=== PATIENT | male | born 1995 | race Caucasian/White ===

== ENCOUNTER 2020-02-22 18:30 | Emergency (ER) | payer BC, OTHER ==
[~2020-02-22] VITALS: Ht 188 cm; Wt 94.3 kg
[~2020-02-22 18:30] MED LIST: ALBU2.5V8 IH; AZIT250T PO; ESOM40CA PO; FAMO20TA5 PO; INSU100I13 SQ; METO5TAB PO; SERT50TA PO
[2020-02-22 18:43] VITALS: BP 147/95
--- NOTE | 2020-02-22 18:53 | PHYS DOC ---
Past History Past Medical History: Depression, Diabetes, GERD Past Surgical History: Appendectomy Smoking: Non-smoker Alcohol Use: None Drug Use: None Adult General Chief Complaint Chief Complaint: COUGH...I ve been cough for two weeks.... and running a fever the last three days.. Just, hurt all over like I got the flu... Advised Dr. Small's office in a year for further evaluation. HPI HPI Patient is a 24 year old male who presents with above hx and complaints of fever, non-productive cough, days, arthralgia, myalgia, and fatigue. He hasn't previously received nasal swabs at Dr. Small's office. Sent to the emergency department for further evaluation. No recent travel outside the cancer area. Multiple members in the household have fever and cough. Patient's brother and his girlfriend 2 other roommates all have same symptoms. Patient did receive flu vaccination this season. Normally healthy. Follows with Dr. Small. Review of Systems Review of Systems Constitutional: Denies fever or chills [] Eyes: Denies change in visual acuity, redness, or eye pain [] HENT: Denies nasal congestion or sore throat [] Respiratory: She a nonproductive cough and wheezing Cardiovascular: No additional information not addressed in HPI [] GI: Denies abdominal pain, nausea, vomiting, bloody stools or diarrhea [] : Denies dysuria or hematuria [] Musculoskeletal: Denies back pain or joint pain [] Integument: Denies rash or skin lesions [] Neurologic: Denies headache, focal weakness or sensory changes [] Endocrine: Denies polyuria or polydipsia [] All other systems were reviewed and found to be within normal limits, except as documented in this note. Family History Family History Noncontributory Current Medications Current Medications Current Medications Medications (Trade) Dose Ordered Sig/Gurpreet Start Time Stop Time Status Last Admin Dose Admin Prednisone (Prednisone) 50 mg 1X ONCE 02/22/20 19:00 02/22/20 19:01 UNV Allergies Allergies Allergies Coded Allergies Type Severity Reaction Last Updated Verified Penicillins Allergy Intermediate 06/09/15 No Uncoded Allergies Type Severity Reaction Last Updated Verified bee venom Allergy Unknown 11/07/16 Physical Exam Physical Exam Constitutional: no acute distress, non-toxic appearance. [] HENT: Normocephalic, atraumatic, bilateral external ears normal, oropharynx moist, no oral exudates, nose: Turbinates and clear rhinorrhea Eyes: PERRLA, EOMI, conjunctiva normal, no discharge. [] Neck: Normal range of motion, no tenderness, supple, no stridor. [] Cardiovascular: Heart rate regular rhythm, no murmur [] Lungs & Thorax: Bilateral breath sounds equal apexes few scattered wheezes on auscultation [] Abdomen: Bowel sounds normal, soft, no tenderness, no masses, no pulsatile masses. [] Old surgery scar. Skin: Warm, dry, no erythema, no rash. [] Back: No tenderness, no CVA tenderness. [] Extremities: No tenderness, no cyanosis, no clubbing, ROM intact, no edema. [] Neurologic: Alert and oriented X 3, normal motor function, normal sensory function, no focal deficits noted. [] Psychologic: Affect normal, judgement normal, mood normal. [] Current Patient Data Vital Signs Vital Signs Date Time Temp Pulse Resp B/P (MAP) Pulse Ox O2 Delivery O2 Flow Rate FiO2 02/22/20 18:43 98.1 80 16 147/95 (112 98 Room Air EKG EKG [] Radiology/Procedures Radiology/Procedures [][place] [address] IMAGING REPORT Signed PATIENT: TELMA CARROLL ACCOUNT: [id number] : 1995 LOCATION: ER AGE: 24 SEX: M EXAM STATUS: REG ER ORD. PHYSICIAN: TAMI MARTINEZ MD REASON: cough x 2 , weeks, fever x 3 days PROCEDURE: CHEST PA & LATERAL Study: CR CHEST PA LATERAL Indication: Cough and fever. Comparison: 11/07/2016 Findings: No pneumothorax, lobar consolidation or pleural effusion. Within normal limits cardiomediastinal silhouette and jyoti. Impression: No acute radiographic abnormality of the chest. Electronically signed by: MIMI JAUREGUI MD (02/22/2020 7:29 PM) [id number] DICTATED AND SIGNED BY: MIMI JAUREGUI MD DATE: 02/22/20 1929 CC: J CARLOS SMALL MD; TAMI MARTINEZ MD ~ Course & Med Decision Making Course & Med Decision Making Pertinent Labs and Imaging studies reviewed. (See chart for details) Take Tylenol and ibuprofen as needed for fever and discomfort. Push fluids. Self isolate. Practice social distance. Follow-up testing done at Dr. Small's office. Use MDI 2 puffs 4 times a day. Follow CDC for up to date information of CO-19. 1. Bronchitis 2. Viral syndrome [] Dragon Disclaimer Dragon Disclaimer This electronic medical record was generated, in whole or in part, using a voice recognition dictation system. Departure Departure: Disposition: HOME/RESIDENCE PRIOR TO ADM Condition: STABLE Referrals: J CARLOS SMALL MD (PCP) Scripts Albuterol Sulfate (VENTOLIN HFA INHALER) 18 Gm Hfa.aer.ad 2 PUFF IH PRN Q4HRS for cough for 30 Days, INHALER 0 Refills Prov: TAMI MARTINEZ MD 02/22/20 Dragon Disclaimer This chart was dictated in whole or in part using Voice Recognition software in a busy, high-work load, and often noisy Emergency Department environment. It may contain unintended and wholly unrecognized errors or omissions. Dragon Disclaimer This chart was dictated in whole or in part using Voice Recognition software in a busy, high-work load, and often noisy Emergency Department environment. It may contain unintended and wholly unrecognized errors or omissions. TAMI MARTINEZ MD Feb 22, 2020 18:53
[2020-02-22] MEDS ORDERED: predniSONE 10 MG TABLET PO ONE (19:00)
[2020-02-22] MEDS ORDERED: IPRATRPIUM/ALBUTEROL 0.5/2.5MG 3 ML NEBU. NEB ONE (19:00)
[2020-02-22 19:29] LABS: INFLUENZA A PATIENT NEGATIVE (NEGATIVE); INFLUENZA B PATIENT NEGATIVE (NEGATIVE)
--- NOTE | 2020-02-22 19:31 | RAD ---
Study: CR CHEST PA LATERAL Indication: Cough and fever. Comparison: 11/07/2016 Findings: No pneumothorax, lobar consolidation or pleural effusion. Within normal limits cardiomediastinal silhouette and jyoti. Impression: No acute radiographic abnormality of the chest. Electronically signed by: MIMI JAUREGUI MD (02/22/2020 7:29 PM) [id number]
[2020-02-22] MEDS ORDERED: ALBU2.5V8 IH (19:45)
== END 2020-02-22 19:55 | disposition home or self-care (01) ==
LOC: ER 18:30
DX: J40 Bronchitis, not specified as acute or chronic (principal); B34.9 Viral infection, unspecified; E11.9 Type 2 diabetes mellitus without complications; K21.9 Gastro-esophageal reflux disease without esophagitis; Z88.0 Allergy status to penicillin
CPT/HCPCS: 71046; 87070; 87804; 87880; 94640; 99284; J7512

== ENCOUNTER 2020-03-12 16:26 | Emergency (ER) | payer OTHER ==
[~2020-03-12] VITALS: Ht 188 cm; Wt 96.9 kg
[2020-03-12 16:26] VITALS: BP 144/79
[2020-03-12] MEDS ORDERED: IV NORMAL SALINE 1,000ML 1,000 ML IV ONE (16:45)
--- NOTE | 2020-03-12 16:51 | PHYS DOC ---
Past History Past Medical History: Depression, Diabetes, GERD Past Surgical History: Appendectomy Smoking: Non-smoker Alcohol Use: None Drug Use: None General Adult EDM: Chief Complaint: NAUSEA/VOMITING/DIARRHEA HPI: HPI: 24-year-old male significant history of hypertension, hyperlipidemia, insulin- dependent diabetes mellitus, asthma, GERD, who presents from Dr. Small's office for evaluation of a few days of trace hemoptysis and hematemesis. He reports a few days of hematemesis consisting of bright red blood, though has been gradually decreasing, with occasional speckles of blood now. He also reports some trace amount assist in the setting of ongoing cough. Having intermittent nausea and vomiting. Has some upper abdominal discomfort a few days ago, though he has been asymptomatic in this regard the last couple days. No aspirin or anticoagulant use. Prior appendectomy. Recently tested negative for COVID19 as outpatient. Review of Systems: Review of Systems: General: Reports subjective fevers and chills, fatigue. Eyes: No blurred vision, diplopia. ENT: No nasal congestion, sore throat. CV: No chest pain, edema. Resp: No shortness of breath. Reports Trisenox is, cough. GI: No abdominal pain. Reports hematemesis, nausea, vomiting. : No dysuria, hematuria. Neuro: No headache, dizziness, weakness. MSK: No myalgia, arthralgia, back pain. Skin: No acute rash, lesion. Heart Score: Risk Factors: Risk Factors: DM, Current or recent (<one month) smoker, HTN, HLP, family history of CAD, obesity. Risk Scores: Score 0 - 3: 2.5% MACE over next 6 weeks - Discharge Home Score 4 - 6: 20.3% MACE over next 6 weeks - Admit for Clinical Observation Score 7 - 10: 72.7% MACE over next 6 weeks - Early Invasive Strategies Allergies: Allergies: Allergies Coded Allergies Type Severity Reaction Last Updated Verified Penicillins Allergy Intermediate 06/09/15 No bee venom protein (honey bee) Allergy Unknown 02/22/20 Yes Physical Exam: PE: Gen: NAD. Well nourished. Head: NC/AT Eyes: No scleral icterus. No conjunctival injection. ENT: MMM. Posterior OP clear. Uvula midline. Neck: Supple. NT. CV: RRR. Peripheral pulses intact. Resp: CTAB. Abd: Soft. NT. ND. MSK: No peripheral cyanosis. No edema. Neuro: Awake and alert. Skin: Warm. Dry. Psych: Appropriate mood & affect. EKG: EKG: [] Radiology/Procedures: Radiology/Procedures: Exam: Chest one view FINDINGS: The cardiomediastinal silhouette and pulmonary vessels are within normal limits. The lung and pleural spaces are clear. IMPRESSION: No acute cardiopulmonary process. Electronically signed by: Alissa Baer MD (03/12/2020 5:16 PM) [id number] Course & Med Decision Making: Course & Med Decision Making Pertinent Labs and Imaging studies reviewed. (See chart for details) In summary, 24-year-old male who presents for evaluation of URI symptoms, trace hematemesis and hemoptysis, though gradually decreasing with time. Also has an transient upper abdominal pain a few days ago, but has had no abdominal pain for the last 2 days or so. Unremarkable cardiorespiratory and abdominal examination. Hemodynamically stable. Pulse oximetry is 98% on room air. The patient's lab work was otherwise unrevealing. He has a normal hemoglobin of 1 7.3. No leukocytosis or lymphopenia. Remainder of lab work is otherwise unrevealing. Borderline hypoglycemia at 63, with the patient not having eaten today, tolerating oral intake. No recurrent episodes of nausea, vomiting, hematemesis or hemoptysis. His hemoptysis is likely due to his ongoing URI symptoms, possibly bronchitis. His hematemesis is likely a consequence of gastritis/Gricelda-Chu spectrum disease. Do not suspect acute PE at this time.I spoke with Dr. Rogers regarding findings and disposition. Agreeable with plan for prescription is for Zithromax, Carafate, continuation of pantoprazole 40 mg twice daily. Outpatient follow-up. Return precautions given. Dragon Disclaimer: Dragon Disclaimer: This electronic medical record was generated, in whole or in part, using a voice recognition dictation system. Departure Departure: Impression: Primary Impression: Viral syndrome Additional Impressions: Hematemesis Hemoptysis Disposition: HOME, SELF-CARE Condition: STABLE Referrals: J CARLOS SMALL MD (PCP) Patient Instructions: Hematemesis, Hemoptysis-Brief, Viral Syndrome Scripts Azithromycin (ZITHROMAX) 250 Mg Tablet 1 PKG PO UD for bronchitis, #6 TAB Prov: LE,JAZZ H DO 4/15/20 Sucralfate (CARAFATE) 1 Gm/10 Ml Oral.susp 10 ML PO BID for gastritis for 6 Days, #240 ML 0 Refills before food Prov: JAZZ DONAHUE DO 03/12/20 JAZZ DONAHUE DO Mar 12, 2020 16:51
[2020-03-12 17:14] LABS: BASO # 0.1 x10^3/uL (0.0-0.2); BASO % 1 % (0-3); EOS # 0.4 x10^3/uL (0.0-0.7); EOS % 6 % (0-3); HEMATOCRIT 49.3 % (39.0-53.0); HEMOGLOBIN 17.3 g/dL (13.0-17.5); LYMPH # 3.1 x10^3/uL (1.0-4.8); LYMPH % 45 % (24-48); MEAN CORPUSCULAR HEMOGLOBIN 30 pg (25-35); MEAN CORPUSCULAR HGB CONC 35 g/dL (31-37); MEAN CORPUSCULAR VOLUME 86 fL (79-100); MONO # 0.5 x10^3/uL (0.0-1.1); MONO % 8 % (0-9); NEUT # 2.8 x10^3uL (1.8-7.7); NEUT % 40 % (31-73); PLATELET COUNT 210 x10^3/uL (140-400); RED BLOOD COUNT 5.72 x10^6/uL (4.30-5.70); RED CELL DISTRIBUTION WIDTH 13.1 % (11.5-14.5); WHITE BLOOD COUNT 6.9 x10^3/uL (4.0-11.0)
[2020-03-12] MEDS ORDERED: PANTOPRAZOLE IV 40 MG VIAL. IVP ONE (17:15)
[2020-03-12] MEDS ORDERED: METOCLOPRAMIDE HCL 10 MG/2 ML VIAL. IVP ONE (17:15)
--- NOTE | 2020-03-12 17:19 | RAD ---
Exam: Chest one view INDICATION: Cough TECHNIQUE: Frontal view of the chest Comparisons: 02/22/2020 FINDINGS: The cardiomediastinal silhouette and pulmonary vessels are within normal limits. The lung and pleural spaces are clear. IMPRESSION: No acute cardiopulmonary process. Electronically signed by: Alissa Baer MD (03/12/2020 5:16 PM) [id number]
[2020-03-12 17:21] LABS: CALCIUM 9.4 mg/dL (8.5-10.1); GFR 92.6; POTASSIUM 3.1 mmol/L (3.5-5.1)
[2020-03-12 17:26] LABS: ALBUMIN 4.4 g/dL (3.4-5.0); ALBUMIN/GLOBULIN RATIO 1.2 (1.0-1.7); MAGNESIUM 1.8 mg/dL (1.8-2.4); TOTAL BILIRUBIN 0.3 mg/dL (0.2-1.0); TOTAL PROTEIN 8.1 g/dL (6.4-8.2)
[2020-03-12] MEDS ORDERED: SUCR1ORA5 PO (17:58)
[2020-03-12] MEDS ORDERED: AZIT250T PO (17:58)
== END 2020-03-12 18:00 | disposition home or self-care (01) ==
LOC: ER 16:26
DX: B34.9 Viral infection, unspecified (principal); K92.0 Hematemesis; R04.2 Hemoptysis; R11.2 Nausea with vomiting, unspecified; E11.9 Type 2 diabetes mellitus without complications; K21.9 Gastro-esophageal reflux disease without esophagitis; I10 Essential (primary) hypertension; E78.5 Hyperlipidemia, unspecified; J45.909 Unspecified asthma, uncomplicated; Z90.89 Acquired absence of other organs; Z88.0 Allergy status to penicillin; Z91.030 Bee allergy status
CPT/HCPCS: 36415; 71045; 80053; 82010; 83690; 83735; 84484; 85025; 85610; 85730; 96361; 96374; 96375; 99284; C9113; J2765; J7030

== ENCOUNTER 2020-05-15 08:48 | Emergency (ER) | payer OTHER ==
[~2020-05-15] VITALS: Ht 188 cm; Wt 96.6 kg
[~2020-05-15 08:48] MED LIST changes: +SUCR1ORA5 PO
[2020-05-15 08:57] VITALS: BP 150/81
[2020-05-15] MEDS ORDERED: ONDA4TAB12 PO (09:14)
[2020-05-15] MEDS ORDERED: FAMO-63 PO (09:14)
--- NOTE | 2020-05-15 09:14 | PHYS DOC ---
Past History Past Medical History: Asthma, Depression, Diabetes, GERD, High Cholesterol, Hypertension, Hypothyroid Past Surgical History: Appendectomy Smoking: Non-smoker Alcohol Use: Occasionally Drug Use: None General Adult EDM: Chief Complaint: SORE THROAT HPI: HPI: 24-year-old male presents with report of nausea and vomiting x1 day. Patient now complaining of sore throat. Reports he is concerned he might of "tore or pulled something in his throat "after vomiting multiple times. Denies any fever or chills. Denies known sick contacts. Patient reports past medical history of diabetes type 1. Review of Systems: Review of Systems: Constitutional: Denies fever or chills; reports malaise Eyes: Denies redness or eye pain HENT: Denies nasal congestion; reports sore throat Respiratory: Denies cough or shortness of breath Cardiovascular: Denies chest pain or palpitations GI: Denies abdominal pain; reports nausea and vomiting : Denies dysuria or hematuria Musculoskeletal: Denies back pain or joint pain Integument: Denies rash or skin lesions Neurologic: Denies headache, focal weakness or sensory changes Complete systems were reviewed and found to be within normal limits, except as documented in this note. Allergies: Allergies: Allergies Coded Allergies Type Severity Reaction Last Updated Verified Penicillins Allergy Intermediate 06/09/15 No bee venom protein (honey bee) Allergy Unknown 02/22/20 Yes Physical Exam: PE: Constitutional: Well developed, well nourished, no acute distress, non-toxic appearance HENT: Normocephalic, atraumatic, oropharynx moist, pharynx erythematous without exudate Eyes: Conjunctiva normal, no discharge Neck: Normal range of motion, no tenderness, supple Lungs & Thorax: No respiratory distress, equal chest rise and fall Abdomen: Soft, no tenderness, no guarding/rebound tenderness/distention Skin: Warm, dry, no erythema, no rash Extremities: No tenderness, ROM intact, no edema Neurologic: Alert and oriented X 3, no focal deficits noted Psychologic: Affect anxious, judgment normal Current Patient Data: Vital Signs: Vital Signs Date Time Temp Pulse Resp B/P (MAP) Pulse Ox O2 Delivery O2 Flow Rate FiO2 05/15/20 08:57 98.2 97 18 150/81 (104) 96 EKG: EKG: [] Radiology/Procedures: Radiology/Procedures: [] Course & Med Decision Making: Course & Med Decision Making Pertinent Lab studies reviewed. (See chart for details) Patient presents with sore throat after multiple episodes of nausea and vomiting. Patient does report some continued nausea. Patient is a type I diabetic. Abdomen non-peritoneal. Labs obtained and posted to chart. Minimal hypomagnesemia noted, H/H stable, glucose low 200s. Patient currently on insulin pump. IV fluid hydration given. Symptomatic treatment provided with interval improvement of symptoms. Patient stable for discharge with outpatient follow-up with PCP/GI. GI referral provided. Discussed findings and plan with patient, who acknowledges understanding and agreement. Dragon Disclaimer: Dragon Disclaimer: This electronic medical record was generated, in whole or in part, using a voice recognition dictation system. Departure Departure: Impression: Primary Impression: Nausea and vomiting Qualified Codes: R11.2 - Nausea with vomiting, unspecified Additional Impression: Sore throat Disposition: HOME/RESIDENCE PRIOR TO ADM Condition: STABLE Referrals: J CARLOS SMALL MD (PCP) NATALYA BECKER MD Patient Instructions: Nausea and Vomiting, [id number], Sore Throat, Ea sy-to-Read Scripts Famotidine (PEPCID) 20 Mg Tablet 1 TAB PO BID for Gastritis for 5 Days, #10 TAB Prov: KASSANDRA HAMMOND DO 05/15/20 Ondansetron (ONDANSETRON ODT) 4 Mg Tab.rapdis 1 TAB PO PRN Q6-8HRS PRN for NAUSEA, #16 TAB Prov: KASSANDRA HAMMOND DO 05/15/20 Justification of Admission: Justification of Admission: Justification of Admission Dx: N/A KASSANDRA HAMMOND DO May 15, 2020 09:14
[2020-05-15] MEDS ORDERED: ONDANSETRON PF 4 MG/2 ML VIAL. IVP ONE (09:15)
[2020-05-15] MEDS ORDERED: FAMOTIDINE 20 MG/2 ML VIAL IVP ONE (09:15)
[2020-05-15] MEDS ORDERED: IV NORMAL SALINE 1,000ML 1,000 ML IV ONE (09:15)
[2020-05-15] MEDS ORDERED: KETOROLAC 15 MG/ML VIAL. IVP ONE (09:15)
[2020-05-15] MEDS ORDERED: LIDO:MAALOX 1:1 20 ML SINGLE DOSE. PO ONE (09:15)
[2020-05-15 09:25] LABS: BASO # 0.1 x10^3/uL (0.0-0.2); BASO % 1 % (0-3); EOS # 0.1 x10^3/uL (0.0-0.7); EOS % 0 % (0-3); HEMOGLOBIN 16.7 g/dL (13.0-17.5); LYMPH # 2.3 x10^3/uL (1.0-4.8); LYMPH % 19 % (24-48); MEAN CORPUSCULAR HEMOGLOBIN 30 pg (25-35); MEAN CORPUSCULAR HGB CONC 34 g/dL (31-37); MEAN CORPUSCULAR VOLUME 88 fL (79-100); MONO # 1.2 x10^3/uL (0.0-1.1); MONO % 10 % (0-9); NEUT # 8.5 x10^3uL (1.8-7.7); NEUT % 70 % (31-73); PLATELET COUNT 199 x10^3/uL (140-400); RED BLOOD COUNT 5.56 x10^6/uL (4.30-5.70); RED CELL DISTRIBUTION WIDTH 13.1 % (11.5-14.5); WHITE BLOOD COUNT 12.1 x10^3/uL (4.0-11.0)
[2020-05-15 09:33] LABS: CALCIUM 10.1 mg/dL (8.5-10.1); GFR 92.6; POTASSIUM 3.5 mmol/L (3.5-5.1)
[2020-05-15 09:38] LABS: ALBUMIN 4.2 g/dL (3.4-5.0); ALBUMIN/GLOBULIN RATIO 1.1 (1.0-1.7); MAGNESIUM 1.4 mg/dL (1.8-2.4); TOTAL BILIRUBIN 1.2 mg/dL (0.2-1.0); TOTAL PROTEIN 7.9 g/dL (6.4-8.2)
== END 2020-05-15 09:45 | disposition home or self-care (01) ==
LOC: ER 08:48
DX: R11.2 Nausea with vomiting, unspecified (principal); J02.9 Acute pharyngitis, unspecified; J45.909 Unspecified asthma, uncomplicated; E10.9 Type 1 diabetes mellitus without complications; K21.9 Gastro-esophageal reflux disease without esophagitis; E78.00 Pure hypercholesterolemia, unspecified; I10 Essential (primary) hypertension; E03.9 Hypothyroidism, unspecified; Z90.89 Acquired absence of other organs; Z88.0 Allergy status to penicillin; Z91.030 Bee allergy status
CPT/HCPCS: 36415; 80053; 82947; 83690; 83735; 85025; 96374; 96375; 99284; J1885; J2405; J3490; J7030

== ENCOUNTER 2020-06-21 23:19 | Emergency (ER) | payer OTHER ==
[~2020-06-21] VITALS: Ht 190.5 cm; Wt 94.1 kg
[~2020-06-21 23:19] MED LIST changes: +FAMO-63 PO; +ONDA4TAB12 PO
[2020-06-22 00:06] LABS: ALBUMIN 3.7 g/dL (3.4-5.0); C REACTIVE PROTEIN 1.6 mg/L (0-3.3); CALCIUM 8.9 mg/dL (8.5-10.1); CREATININE 1.6 mg/dL (0.7-1.3); GFR 53.8; POTASSIUM 4.2 mmol/L (3.5-5.1); TOTAL BILIRUBIN 0.6 mg/dL (0.2-1.0); TOTAL PROTEIN 7.4 g/dL (6.4-8.2)
--- NOTE | 2020-06-22 00:07 | RAD ---
Chest AP portable at 2330: Reason for examination: Cough. Comparison is made to previous study dated 03/12/2020. The heart size is normal. Mediastinum is unremarkable. Lung balbuena are clear. No acute bony abnormalities are seen. Impression: No acute cardiopulmonary disease. Electronically signed by: Gely Peterson MD (06/22/2020 12:04 AM) [id number]
[2020-06-22 00:08] LABS: BASO % 0 % (0-3); EOS # 0.1 x10^3/uL (0.0-0.7); EOS % 2 % (0-3); HEMOGLOBIN 16.2 g/dL (13.0-17.5); LYMPH # 2.1 x10^3/uL (1.0-4.8); LYMPH % 29 % (24-48); MEAN CORPUSCULAR HEMOGLOBIN 30 pg (25-35); MEAN CORPUSCULAR HGB CONC 34 g/dL (31-37); MEAN CORPUSCULAR VOLUME 88 fL (79-100); MONO # 0.6 x10^3/uL (0.0-1.1); MONO % 8 % (0-9); NEUT # 4.2 x10^3uL (1.8-7.7); NEUT % 60 % (31-73); PLATELET COUNT 177 x10^3/uL (140-400); RED BLOOD COUNT 5.43 x10^6/uL (4.30-5.70); RED CELL DISTRIBUTION WIDTH 12.5 % (11.5-14.5)
[2020-06-22] MEDS ORDERED: IV NORMAL SALINE 1,000ML 1,000 ML IV ONE ×2 (00:30→01:15)
[2020-06-22] MEDS ORDERED: FAMOTIDINE 20 MG/2 ML VIAL IVP ONE (01:15)
[2020-06-22] MEDS ORDERED: LIDO:MAALOX 1:1 20 ML SINGLE DOSE. PO ONE (01:15)
[2020-06-22 01:19] LABS: CLARITY,URINE CLEAR; COLOR,URINE STRAW
[2020-06-22 01:20] LABS: AMORPHOUS SEDIMENT,UR PRESENT /HPF; BACTERIA,URINE FEW /HPF (0-FEW); BILIRUBIN,URINE NEG (NEG); GLUCOSE,URINE >=1000 mg/dL (NEG); NITRITE,URINE NEG (NEG); RBC,URINE 0 /HPF (0-2); SQUAMOUS EPITHELIAL CELL,UR OCC /LPF; UROBILINOGEN,URINE 0.2 mg/dL (0.2 mg/dL); WBC,URINE 0 /HPF (0-4)
[2020-06-22 01:35] VITALS: BP 131/81
[2020-06-22] MEDS ORDERED: SUCR1TAB35 PO (01:53)
[2020-06-22] MEDS ORDERED: FAMO-63 PO (01:53)
--- NOTE | 2020-06-22 01:54 | PHYS DOC ---
Past History Past Medical History: Anxiety, Bipolar, Depression, Diabetes, GERD, High Cholesterol, Hypertension Past Surgical History: Appendectomy Smoking: Non-smoker Alcohol Use: Occasionally Drug Use: None Adult General Chief Complaint Chief Complaint: DIZZY/LIGHT HEADED HPI HPI Patient is a [age] year old [sex] who presents with [] Review of Systems Review of Systems Constitutional: Denies fever or chills [] Eyes: Denies change in visual acuity, redness, or eye pain [] HENT: Denies nasal congestion or sore throat [] Respiratory: Denies cough or shortness of breath [] Cardiovascular: No additional information not addressed in HPI [] GI: Denies abdominal pain, nausea, vomiting, bloody stools or diarrhea [] : Denies dysuria or hematuria [] Musculoskeletal: Denies back pain or joint pain [] Integument: Denies rash or skin lesions [] Neurologic: Denies headache, focal weakness or sensory changes [] Endocrine: Denies polyuria or polydipsia [] All other systems were reviewed and found to be within normal limits, except as documented in this note. Current Medications Current Medications Current Medications Medications (Trade) Dose Ordered Sig/Gurpreet Start Time Stop Time Status Last Admin Dose Admin Famotidine (Pepcid Vial) 20 mg 1X ONCE 06/22/20 01:15 06/22/20 01:16 DC 06/22/20 01:18 20 MG Multi-Ingredient Mouthwash/Gargle (Gi Cocktail) 20 ml 1X ONCE 06/22/20 01:15 06/22/20 01:16 DC 06/22/20 01:18 20 ML Sodium Chloride 1,000 ml @ 1,000 mls/hr 1X ONCE 06/22/20 01:15 06/22/20 02:14 UNV 06/22/20 01:19 1,000 MLS/HR Allergies Allergies Allergies Coded Allergies Type Severity Reaction Last Updated Verified Penicillins Allergy Intermediate 06/21/20 No bee venom protein (honey bee) Allergy Unknown 06/21/20 Yes Physical Exam Physical Exam Constitutional: Well developed, well nourished, no acute distress, non-toxic appearance. [] HENT: Normocephalic, atraumatic, bilateral external ears normal, oropharynx moist, no oral exudates, nose normal. [] Eyes: PERRLA, EOMI, conjunctiva normal, no discharge. [] Neck: Normal range of motion, no tenderness, supple, no stridor. [] Cardiovascular:Heart rate regular rhythm, no murmur [] Lungs & Thorax: Bilateral breath sounds clear to auscultation [] Abdomen: Bowel sounds normal, soft, no tenderness, no masses, no pulsatile masses. [] Skin: Warm, dry, no erythema, no rash. [] Back: No tenderness, no CVA tenderness. [] Extremities: No tenderness, no cyanosis, no clubbing, ROM intact, no edema. [] Neurologic: Alert and oriented X 3, normal motor function, normal sensory function, no focal deficits noted. [] Psychologic: Affect normal, judgement normal, mood normal. [] Current Patient Data Vital Signs Vital Signs Date Time Temp Pulse Resp B/P (MAP) Pulse Ox O2 Delivery O2 Flow Rate FiO2 06/22/20 01:35 97 16 131/81 (98) 97 Room Air 06/21/20 23:19 98.8 Lab Results Laboratory Tests Test 06/21/20 23:30 06/22/20 00:25 White Blood Count 7.0 x10^3/uL (4.0-11.0) Red Blood Count 5.43 x10^6/uL (4.30-5.70) Hemoglobin 16.2 g/dL (13.0-17.5) Hematocrit 48.0 % (39.0-53.0) Mean Corpuscular Volume 88 fL (79-100) Mean Corpuscular Hemoglobin 30 pg (25-35) Mean Corpuscular Hemoglobin Concent 34 g/dL (31-37) Red Cell Distribution Width 12.5 % (11.5-14.5) Platelet Count 177 x10^3/uL (140-400) Neutrophils (%) (Auto) 60 % (31-73) Lymphocytes (%) (Auto) 29 % (24-48) Monocytes (%) (Auto) 8 % (0-9) Eosinophils (%) (Auto) 2 % (0-3) Basophils (%) (Auto) 0 % (0-3) Neutrophils # (Auto) 4.2 x10^3uL (1.8-7.7) Lymphocytes # (Auto) 2.1 x10^3/uL (1.0-4.8) Monocytes # (Auto) 0.6 x10^3/uL (0.0-1.1) Eosinophils # (Auto) 0.1 x10^3/uL (0.0-0.7) Basophils # (Auto) 0.0 x10^3/uL (0.0-0.2) Activated Partial Thromboplast Time 26 SEC (23-33) D-Dimer (Elle) 0.23 mg/L (0.00-0.50) Sodium Level 132 mmol/L (136-145) L Potassium Level 4.2 mmol/L (3.5-5.1) Chloride Level 94 mmol/L (98-107) L Carbon Dioxide Level 28 mmol/L (21-32) Anion Gap 10 (6-14) Blood Urea Nitrogen 15 mg/dL (8-26) Creatinine 1.6 mg/dL (0.7-1.3) H Estimated GFR (Cockcroft-Gault) 53.8 BUN/Creatinine Ratio 9 (6-20) Glucose Level 678 mg/dL (70-99) *H Calcium Level 8.9 mg/dL (8.5-10.1) Total Bilirubin 0.6 mg/dL (0.2-1.0) Aspartate Amino Transferase (AST) 23 U/L (15-37) Alanine Aminotransferase (ALT) 24 U/L (16-63) Alkaline Phosphatase 74 U/L (46-116) Troponin I Quantitative < 0.017 ng/mL (0-0.055) C-Reactive Protein 1.6 mg/L (0-3.3) Total Protein 7.4 g/dL (6.4-8.2) Albumin 3.7 g/dL (3.4-5.0) Albumin/Globulin Ratio 1.0 (1.0-1.7) Urine Collection Type Unknown Urine Color Straw Urine Clarity Clear Urine pH 7.0 Urine Specific [place] 1.010 Urine Protein Neg (NEG-TRACE) Urine Glucose (UA) >=1000 mg/dL (NEG) Urine Ketones (Stick) Neg mg/dL (NEG) Urine Blood Neg (NEG) Urine Nitrite Neg (NEG) Urine Bilirubin Neg (NEG) Urine Urobilinogen Dipstick 0.2 mg/dL (0.2 mg/dL) Urine Leukocyte Esterase Neg (NEG) Urine RBC 0 /HPF (0-2) Urine WBC 0 /HPF (0-4) Urine Squamous Epithelial Cells Occ /LPF Urine Amorphous Sediment Present /HPF Urine Bacteria Few /HPF (0-FEW) EKG EKG [] Radiology/Procedures Radiology/Procedures [] Course & Med Decision Making Course & Med Decision Making Pertinent Labs and Imaging studies reviewed. (See chart for details) [] Dragon Disclaimer Dragon Disclaimer This electronic medical record was generated, in whole or in part, using a voice recognition dictation system. Departure Departure: Impression: Primary Impression: Suspected 2019 novel coronavirus infection Additional Impressions: Hyperglycemia Gastritis Disposition: HOME/RESIDENCE PRIOR TO ADM Condition: STABLE Referrals: J CARLOS SMALL MD (PCP) Patient Instructions: Gastritis, Adult Additional Instructions: Thank you for visiting [facility]. We appreciate you trusting us with your care. If any additional problems come up please don't hesitate to return to visit us. Follow up with your primary care provider so they can plan additional care if needed and know about the problem that you had today. If symptoms worsen come back to the Emergency Department. Any concerning symptoms that start such as chest pain, shortness of air, weakness or numbness on one side of the body, running high fevers or any other concerning symptoms return to the ER. You have a viral syndrome which may include symptoms like muscle aches, fevers, chills, runny nose, cough, sneezing, sore throat, nausea, vomiting, or diarrhea. One of the potential viruses that you may have is SARS-CoV-2, the virus that causes COVID-19, also known as the Coronavirus. You are just as likely to have a different viral infection such as the common cold, flu, etc. Most patients with the Coronavirus have mild symptoms and recover on their own. Resting, staying hydrated, and sleep based on known cases can be helpful. As of todays visit, you are well enough to go home and treat your symptoms with oral fluids and over the counter medications. Coronavirus testing is not performed on most people with mild symptoms who are being discharged from the emergency department. If Coronavirus testing was performed today the results will not be available for possibly up to 3-4 days. If your result is positive you will be contacted. Please follow the following precautions at home: 1. Stay home except to get medical care. 2. As advised by the CDC, we recommend that you stay in your home and minimize contact with other people. We do not want you to spread the infection. 3. Those who are older or have significant medical issues may have more severe symptoms from this infection. We recommend self-isolation FOR AT LEAST 7 DAYS after your 1st day of symptoms. AFTER you feel better please wait AT LEAST ANOTHER WEEK before returning to regular activities and being around other people. 4. IF you become sicker and have difficulty breathing, chest pain, are unable to eat/drink, severe vomiting, diarrhea, or weakness you may need to return to the Emergency Department. 5. You should restrict activities outside of your home, except for getting medical care. DO NOT go to work, school, or public areas. Avoid using public transportation, ride sharing, or taxis. 6. Separate yourself from other people in your home. You should use a separate bathroom if possible. 7. Avoid sharing personal household items such as dishes, cups, eating utensils, towels, etc. 8. Clean all high touch surfaces every day (door knobs, counter tops, etc). Use a household cleaning spray or wipe per label instructions. 9. Clean your hands often. Wash your hands with soap and water for at least 20 seconds. 10. Cover your mouth and nose when you cough or sneeze. 11. Throw used tissues in the trash and immediately wash your hands. For additional resources please visit the CDC website or the [facility] ([phone]), you may also call 211 for further information. Scripts Sucralfate (CARAFATE) 1 Gm Tablet 1 TAB PO QID for gastritis for 30 Days, #120 TAB 0 Refills Prov: ERASMO FLANNERY MD 06/22/20 Famotidine (PEPCID) 20 Mg Tablet 1 TAB PO BID for gastritis, #60 TAB 0 Refills Prov: ERASMO FLANNERY MD 06/22/20 Justification of Admission: Justification of Admission: Justification of Admission Dx: No Problem Qualifiers ERASMO FLANNERY MD Jun 22, 2020 01:54
--- NOTE | 2020-06-25 11:18 | NUR ---
IP: patient notified of COVID result.
== END 2020-06-22 02:00 | disposition home or self-care (01) ==
LOC: ER 23:19
DX: K29.70 Gastritis, unspecified, without bleeding (principal); E11.65 Type 2 diabetes mellitus with hyperglycemia; R05 Cough; Z20.828 Contact with and (suspected) exposure to other viral communicable diseases; K21.9 Gastro-esophageal reflux disease without esophagitis; E78.00 Pure hypercholesterolemia, unspecified; I10 Essential (primary) hypertension; Z88.0 Allergy status to penicillin; Z91.030 Bee allergy status
CPT/HCPCS: 36415; 71045; 80053; 81001; 84484; 85025; 85379; 85730; 86140; 96361; 96374; 99284; J3490; J7030; U0003

== ENCOUNTER → 2021-01-07 | Outpatient (CLI) | payer BC ==
[~2021-01-07] MED LIST changes: +SUCR1TAB35 PO
[2021-01-07 16:45] LABS: CALCIUM 9.1 mg/dL (8.5-10.1); CREATININE 0.9 mg/dL (0.7-1.3); GFR 103.7; POTASSIUM 3.7 mmol/L (3.5-5.1); TOTAL BILIRUBIN 0.4 mg/dL (0.2-1.0); TOTAL PROTEIN 8.1 g/dL (6.4-8.2)
[2021-01-08 02:07] LABS: HEMOGLOBIN A1C 9.2 % (4.8-5.6)
== END ==
LOC: LAB 15:32
PROVIDERS: ATTEND Registered Nurse
DX: E10.65 Type 1 diabetes mellitus with hyperglycemia (principal); E78.2 Mixed hyperlipidemia; Z79.4 Long term (current) use of insulin; Z96.41 Presence of insulin pump (external) (internal)
CPT/HCPCS: 36415; 80053; 80061; 83036